=== PATIENT | male | born 1945 | race Caucasian/White ===

== ENCOUNTER → 2016-05-20 | Outpatient (CLI) | payer MEDICARE, BC ==
[~2016-05-20] MED LIST: ADVIL200 MG PO; ALDACTONE25 MG PO; ALEVE220 MG PO; BETAPACE (GENER80 MG PO; COZAAR100 MG PO; CPAP INH; ELIQUIS5 MG PO; FOLIC ACID0.8 MG PO; ISORDIL10 MG PO; LIPITOR40 MG PO; PLAVIX75 MG PO; REFRESH OPTIVE10 M1 OPHTH; TRIAMCINOLONE 080 GM TOP; TYLENOL EXTRA500 MG PO; VIAGRA100 MG PO; XALATAN2.5 ML OPHTH; [UNRECOGNIZED DRUG - OTHER] TOP
[2016-05-20 13:39] LABS: BASOPHIL # 0.1 K/uL (0.0-0.2); BASOPHIL % 0.8 %; EOSINOPHIL # 0.2 K/uL (0.0-0.5); EOSINOPHIL % 3.8 %; HEMATOCRIT 44.9 % (37.0-53.0); HEMOGLOBIN 14.5 g/dL (11.0-16.0); IMMATURE GRANULOCYTE % 0.3 %; LYMPHOCYTE # 1.9 K/uL (0.8-4.0); LYMPHOCYTE % 31.7 %; MCHC 32.3 gm/dL (32.0-36.5); MONOCYTE # 0.6 K/uL (0.0-1.0); MONOCYTE % 9.4 %; MPV 10.1 fl (9.4-12.4); NEUTROPHIL # (ANC) 3.3 K/uL (1.4-9.0); NRBC % 0 /100WBC (0-0.00); PLATELET COUNT 219 K/uL (150-450); RBC 4.83 M/uL (3.50-5.50); RDW-CV 12.8 % (11.9-14.6); WBC 6.1 K/uL (4.0-11.0)
[2016-05-20 13:55] LABS: ALBUMIN 4.1 gm/dL (3.5-5.0); ALK PHOS 68 IU/L (33-138); ALT 27 IU/L (12-78); ANION GAP 11.5 (10.0-19.0); AST 21 IU/L (10-40); BLOOD UREA NITROGEN 14 mg/dL (6-24); CHLORIDE 107 mMol/L (96-110); CO2 27 mMol/L (22-32); CPK 95 IU/L (35-332); CREATININE 1.3 mg/dL (0.6-1.3); ESTIMATED GFR (MDRD EQUATION) 55; POTASSIUM 4.5 mMol/L (3.7-5.1); SODIUM 141 mMol/L (135-145); TOTAL PROTEIN 7.2 g/dL (6.0-8.4)
== END | disposition disaster alternative care site (69) ==
LOC: LNHI 13:31
PROVIDERS: Internal Medicine Cardiovascular Disease
DX: I25.10 Atherosclerotic heart disease of native coronary artery without angina pectoris (principal); I70.0 Atherosclerosis of aorta; I25.5 Ischemic cardiomyopathy; I48.0 Paroxysmal atrial fibrillation

== ENCOUNTER 2016-06-15 15:59 | Inpatient (IN) | payer MEDICARE, BC ==
[~2016-06-15] VITALS: Ht 185.4 cm; Wt 107.4 kg
--- NOTE | ~2016-06-15 | DS ---
PATIENT'S NAME: SHU CÁRDENAS [facility] AGE: 71 Y [address] ROOM: [id number] [place], [place] [address] LOCATION: GPCU ADMIT DATE: 06/15/2016 Discharge Summary DISCHARGE DATE: 06/17/2016 FAMILY PHYSICIAN: Von Urbina MD ATTENDING PHYSICIAN: Israel Piña PRIMARY DISCHARGE DIAGNOSIS: Recurrent atrial flutter. SECONDARY DISCHARGE DIAGNOSES: 1. Long-term anticoagulation with Eliquis. 2. Coronary artery disease with a history of coronary artery bypass grafting. 3. History of aorta endograft. 4. Ischemic cardiomyopathy. 5. Ejection fraction of 40%. 6. Dual-chamber permanent pacemaker. PROCEDURE: Direct current cardioversion. HOSPITAL COURSE: This is a 71-year-old male, who was seen in the [facility] on 05/20/2016 for his history of chronic atrial fibrillation and flutter. He was in sinus rhythm at that time and tolerating his sotalol dose. On 06/11/2016, the patient converted to an atrial flutter and plans were made at that time to admit him to the hospital for increased sotalol dosages and possibly proceeding with a direct current cardioversion if he was unable to self convert back to sinus rhythm with medication changes. Please see history and physical for full details of admission. The patient's sotalol dose was increased to 80 mg p.o. twice daily. On 06/16/2016, his QTc measured 430, and he still had not converted himself to sinus rhythm with the medication changes, so plan was made to proceed with a direct current cardioversion the following morning after being n.p.o. after midnight. On 06/17/2016, the patient received 1 shock of 70 joules as a direct current cardioversion. Please see procedure report as dictated by Dr. Piña for full details. He converted from atrial flutter to an AV paced rhythm. His QTc remained at 429. He returned to the progressive care unit where he was monitored for 6 hours, and he continued in a controlled AV paced rhythm and was found to be in stable condition to be discharged to home. DIAGNOSTICS: The patient's renal function during hospitalization showed an initial BUN, creatinine, and GFR of 20, 1.4, and 50 respectively. Upon discharge, his BUN, creatinine, and GFR were 16, 1.3, and 55 respectively. DISCHARGE ORDERS: The patient is discharged to home with no restrictions to his activity or diet. He is to follow up with his primary care provider in 1 PATIENT'S NAME: SHU CÁRDENAS [facility] AGE: 71 Y [address] ROOM: [place] [address] LOCATION: GPCU ADMIT DATE: 06/15/2016 Discharge Summary DISCHARGE DATE: 06/17/2016 FAMILY PHYSICIAN: Von Urbina MD ATTENDING PHYSICIAN: Israel Piña as well as following up with Dr. Piña in 2 weeks. DISCHARGE MEDICATIONS: 1. Eliquis 5 mg p.o. twice daily. 2. Lipitor 40 mg p.o. daily at bedtime. 3. Folic acid 0.8 mg p.o. daily. 4. Isosorbide dinitrate 10 mg p.o. twice daily. 5. Cozaar 50 mg p.o. daily. 6. Sotalol 80 mg p.o. every 12 hours. 7. Aldactone 12.5 mg p.o. daily. 8. Triamcinolone cream topically to rash on bilateral legs twice daily as needed. 9. Fluocinonide 0.05% cream topically twice daily to rash on scalp as needed. 10. CPAP device at night with sleep. 11. Refresh eyedrops as needed intraophthalmically for dryness. 12. Tylenol 500 to 1000 mg p.o. every 6 hours as needed for pain. 13. Sildenafil citrate 100 mg p.o. daily as needed for erectile dysfunction. 14. Ibuprofen 400 mg p.o. every 4 hours as needed for pain. 15. Aleve 440 mg p.o. every 12 hours as needed for pain. DISPOSITION: The patient is discharged to home in stable condition. His discharge instructions including a new prescription for increased sotalol dosing given to the patient and his . He is also given instructions on his followup appointments. He voices understanding and plans to follow his instructions as prescribed. CRISTY MORALES MD DEH/osoriol /[id number] d: 06/23/1636 t: 06/23/16 0843, DISCHARGE SUMMARY
--- NOTE | ~2016-06-15 | OR ---
PATIENT'S NAME: SHU CÁRDENAS [facility] AGE: 71 Y [address] ROOM: [address] [address] [facility] AD[facility] DATE: 06/15/2016 OR/Procedure Report DISCHARGE DATE: FAMILY PHYSICIAN: Von Urbina ATTENDING PHYSICIAN: Israel Leong SURGEON: Israel Leong MD MATERIALS RECYCLER: DATE OF PROCEDURE: 06/15/2016 PROCEDURE PERFORMED: Cardioversion. INDICATION: The patient had recurrent atrial flutter. He was admitted to the hospital. His sotalol dose was increased from 40 twice a day to 80 mg. his QTc remains below 500. The patient failed to convert. DESCRIPTION OF PROCEDURE: He was brought to the procedural unit. Anesthesia was provided with propofol, and when deeply asleep, I delivered a single synchronized biphasic 70 joule shock with patches in anterior-posterior configuration. The patient promptly converted from atrial flutter to atrioventricular pacing. CONCLUSION: Successful cardioversion from atrial flutter to sinus rhythm/atrioventricular pacing. ISRAEL LEONG MD PE/modl /[id number] d: 06/17/16 1146 t: 06/19/16 0834, OPERATIVE SUMMARY
[~2016-06-15 15:59] MED LIST changes: -ADVIL200 MG PO; -VIAGRA100 MG PO
--- NOTE | 2016-06-15 17:05 | NUR ---
Pt is 71 y/o male admit for atrial flutter for . PT alert and orinted x3. Allergies to PCN,ASA,lisinopril. Resides at home with his . Hx htn,afib,hypercholest,DE,CABG,sleep apnea-CPAP,hayfever,N/T hands,renal artery disease-stent placed,lumbar fusion,renal calculi,pacemaker. Wears bilat hearing aids and glasses. Pt states the wireless monitor for his pacemaker detected aflutter and 's office called him . On Wednesday adjusted his medications-stopped Imdur and losartan due to pt's BP being low-81/52. Pt states he was asymptomatic. Denies dizziness,lightheadedness.
[2016-06-15] MEDS ORDERED: VIAGRA100 MG PO (17:28)
[2016-06-15] MEDS ORDERED: ADVIL200 MG PO (17:28)
[2016-06-15] MEDS ORDERED: ALEVE220 MG PO (17:29)
--- NOTE | 2016-06-15 19:17 | NUR ---
Significant Event:Alert & oriented. VSS,afebrile,room air. CPAP at night. Pacemaker. Pt was contacted regarding Aflutter rhythm, also checks BP at home and was hypotensive at times, felt tired over past week but otherwise asymptomatic. SBA. Chronic numbness to L) fingers. Follow up: Cardioversion on Wednesday if not back to NSR with medication adjustments.
--- NOTE | 2016-06-16 05:51 | NUR ---
Significant Event: VSS. UP AD JING. DENIES PAIN, DIZZINESS, LIGHT HEADEDNESS, PALPITATIONS. A-FLUTTER WITH OCC PACER SPIKES. INCREASE IN SOTALOL DOSE. IF MEDICATION DOES NOT WORK, CARDIOVERSION THIS WEEK. Follow up:CONT TO MONITOR
[2016-06-16 11:07] LABS: ANION GAP 10.1 (10.0-19.0); CREATININE 1.4 mg/dL (0.6-1.3); MAGNESIUM 2.1 mg/dL (1.8-2.6); POTASSIUM 4.1 mMol/L (3.7-5.1)
--- NOTE | 2016-06-16 14:08 | NUR ---
Pt sleeping. I did speak with nursing and does not anticipate any dc needs at this time he is up ad mc.
--- NOTE | 2016-06-16 15:11 | NUR ---
Significant Event: Alert & orienetd. SBP 95-120, HR 80-100 aflutter/afib, frequent PVCs, asymptomatic. Up ad mc, ambulating halls. Follow up: Cardioversion Wednesday if not back in NSR? Son concerned about proceeding with procedure and would like to speak with
--- NOTE | 2016-06-17 04:46 | NUR ---
Significant Event: Patient alert and oriented x3. Up independent. Ambulated in halls. Remains in a.fib/flutter with rates 70s-90s and SBPs 110s. Room air during the day, cpap at night. Right forearm IV saline locked. Denies any pain. Pleasant/cooperative with cares Follow up: cardioversion this morning
[2016-06-17 06:05] LABS: ANION GAP 13.5 (10.0-19.0); CALCIUM 8.9 mg/dL (8.5-10.5); CREATININE 1.3 mg/dL (0.6-1.3); POTASSIUM 4.5 mMol/L (3.7-5.1)
--- NOTE | 2016-06-17 08:46 | NUR ---
0830 REPORT FROM ANA SHELTON ON PCU
--- NOTE | 2016-06-17 14:34 | NUR ---
Introduced self and role of care management to pt and . He states he is planning home today and denies needs at this time and is independent with cares. WIll assist as needed.
--- NOTE | 2016-06-17 17:13 | NUR ---
PATIENT AND GIVEN WRITTEN DISMISSAL INSTRUCTIONS INCLUDING NEW HOME MEDICATION LIST WITH INFORMATION ON NEW CHANGES TO CURRENT MEDS, FOLLOW-UP APPOINTMENTS, NO DIET AND NO ACTIVITY RESTRICTIONS, WELL PRESCRIPTIONS. PATIENT AND VERBALLY STATE UNDERSTANDING OF INFORMATION DISCUSSED WITH RN. PIV REMOVED FROM INNER RIGHT FA WITH GAUZE AND COBAN APPLIED. TELEMETRY DC'D AND PATIENT DRESSED IN OWN CLOTHING. TAKEN TO FRONT OF [facility] ENTRANCE WITH RN, AND BELONGINGS AT 1700.
== END 2016-06-17 17:00 | disposition disaster alternative care site (69) | DRG 310 ==
LOC: GPCU 15:59
PROVIDERS: Nurse Practitioner; ADMIT Internal Medicine Cardiovascular Disease
PROC: 5A2204Z Restoration of Cardiac Rhythm, Single (ICD-10-PCS; principal; 2016-06-17)
DX: I48.92 Unspecified atrial flutter (principal); I25.5 Ischemic cardiomyopathy; Z95.1 Presence of aortocoronary bypass graft; I25.10 Atherosclerotic heart disease of native coronary artery without angina pectoris; I48.2 Chronic atrial fibrillation; Z79.01 Long term (current) use of anticoagulants; G47.33 Obstructive sleep apnea (adult) (pediatric); Z95.0 Presence of cardiac pacemaker; Z87.891 Personal history of nicotine dependence; Z98.1 Arthrodesis status; Z96.651 Presence of right artificial knee joint
CPT/HCPCS: J7030